=== PATIENT | female | born 1965 | race Caucasian/White ===

== ENCOUNTER 2024-02-20 09:27 | Observation (INO) ==
--- NOTE | 2024-01-20 12:45 | PAT Medication Instructions ---
Medication Instructions Date of Service January 20, 2024 Home Medications ascorbic acid (vitamin C) 500 mg tablet,extended release (Vitamin C ER) 500 mg PO DAILY celecoxib 200 mg capsule (Celebrex) 200 mg PO BID cholecalciferol (vitamin D3) 50 mcg (2,000 unit) tablet (Vitamin D3) 50 mcg PO DAILY multivitamin 1 tab PO QAM prasterone (dhea)-calcium carbonate 10 mg-47 mg calcium tablet (DHEA) 1 tab PO QAM progesterone micronized 100 mg capsule 100 mg PO QAM thyroid (pork) 60 mg tablet ([place] Thyroid) 60 mg PO QAM ASK your surgeon for instructions celecoxib 200 mg capsule (Celebrex) 200 mg PO BID ASK your prescriber and surgeon progesterone micronized 100 mg capsule 100 mg PO QAM STOP taking 2 weeks before surgery prasterone (dhea)-calcium carbonate 10 mg-47 mg calcium tablet (DHEA) 1 tab PO QAM DO NOT take the morning of surgery ascorbic acid (vitamin C) 500 mg tablet,extended release (Vitamin C ER) 500 mg PO DAILY cholecalciferol (vitamin D3) 50 mcg (2,000 unit) tablet (Vitamin D3) 50 mcg PO DAILY multivitamin 1 tab PO QAM Take morning of surgery With a small sip of water, OTHERWISE NOTHING TO EAT OR DRINK AFTER MIDNIGHT: thyroid (pork) 60 mg tablet ([place] Thyroid) 60 mg PO QAM Other Notes If you have any questions please call us at [phone] or [phone] or [phone] or [phone]
--- NOTE | 2024-01-27 09:10 | Anesthesiology Consultation ---
Date of Service January 27, 2024 Assessment & Plan (1) Encounter for pre-operative examination: - Infectious disease screening: Per assessment on 01/27/24: No known infectious disease contacts or current infectious disease symptoms. No noted recent Covid positive test result. - Outpatient joint assessment: Pt currently scheduled for inpatient pathway. If surgeon requests review for outpatient joint pathway, patient is an acceptable candidate for outpatient joint program from anesthesia standpoint pending surgeon's office assessment that patient is motivated, has good support and completes [facility] preop requirements. - Chlorhexidine allergy: Hx rash reaction. No chlorhexidine wipes provided at PAT visit d/t hx of reaction. Chart Review Chart Review: Acceptable Risk for Surgery and Patient seen in Pre Admission Testing Teaching & Discussion Pre-Anesthesia Teaching/Discussion Notes: Instructed NPO after midnight before surgery,except medications with 15 cc of water. Medication instructions provided according to the [facility] guidelines. History Surgery Operation Date: 02/20/24 08:00 Proposed Procedures p Left Total Hip Arthroplasty Anterior - Garrick Sellers, Height/Weight Height: 5 ft 5 in Weight: 87.8 kg Allergies Allergy/AdvReac Type Severity Reaction Status Date / Time chlorhexidine Allergy Intermediate Rash Verified 01/19/24 09:13 [From ChloraPrep Clear] isopropyl alcohol Allergy Intermediate Rash Verified 01/19/24 09:13 [From ChloraPrep Clear] Medications Home Medications Medication Instructions Recorded Confirmed Last Taken ascorbic acid (vitamin C) 500 mg 500 mg PO DAILY 01/19/24 01/19/24 Unknown tablet,extended release (Vitamin C ER) celecoxib 200 mg capsule (Celebrex) 200 mg PO BID 01/19/24 01/19/24 Unknown cholecalciferol (vitamin D3) 50 50 mcg PO DAILY 01/19/24 01/19/24 Unknown mcg (2,000 unit) tablet (Vitamin D3) multivitamin 1 tab PO QAM 01/19/24 01/19/24 Unknown prasterone (dhea)-calcium 1 tab PO QAM 01/19/24 01/19/24 Unknown carbonate 10 mg-47 mg calcium tablet (DHEA) progesterone micronized 100 mg 100 mg PO QAM 01/19/24 01/19/24 Unknown capsule thyroid (pork) 60 mg tablet 60 mg PO QAM 01/19/24 01/19/24 Unknown ([place] Thyroid) Past Medical History Medical History History of COVID-2021 Hypothyroidism Osteoarthritis Postmenopausal HRT (hormone replacement therapy) + "Pellet" insertion approximately every 4-5 months Exercise / Class Metabolic Activity II 4-5 Yardwork/Stairs/Walk up hill (one FS: No CP, no SOB) Past Family History Family History Sister Sakaa-Cvmsqgncx-Xeiyf (WPW) syndrome Past Surgical History Surgical History History of breast biopsy benign History of colonoscopy History of tooth extraction Hx of ectopic with surgery Past Anesthesia History No Hx of Anesthesia Complications and No Family Hx of Anesthesia Complications History of PONV No Hx of PONV and No Hx of Motion Sickness Social History Smoking Status: Never smoker Do You Dip or Chew Tobacco: No Hx Alcohol Use: Yes Alcohol type: wine alcohol intake frequency: 3 or more drinks per day (2-3 drink/day) Hx Substance Use: No substance use type: does not use Review of Systems Patient denies chest pain, shortness of breath, dyspnea on exertion, fever, chills, cough, wheezing, palpitations. Physical Exam Vital Signs BP 110/76 P 72 TEMP SP02 95%RA RESP 16 Physical Full cervical extension range of motion. Full TMJ range of motion. TMD 3 finger breaths Mallampati Score 3 Dentition: intact, several crowns (molars), bridge Lungs: clear throughout to auscultation Cardiac: regular rate and rhythm, no murmurs noted Spine: normal Carotid arteries: negative bruit Extremities: no LE edema Lab Results Anesthesia Preop Results Results Anesthesia Widget: WBC 7.36 K/ul (4.8-10.8) 01/27/24 Hgb 14.6 g/dl (12.0-16.0) 01/27/24 Hct 43.8 % (37.0-47.0) 01/27/24 Plt 288 K/uL (130-400) 01/27/24 Na 136 mmol/L (136-145) 01/27/24 K 4.5 mmol/L (3.5-5.1) 01/27/24 Cl 105 mmol/L (98-107) 04/16/24 CO2 24 mmol/L (21-32) 01/27/24 BUN 18 mg/dl (6-23) 01/27/24 Creat 0.83 mg/dl (0.6-1.2) 01/27/24 Glucose Level 99 mg/dl (70-99(Fasting)) 01/27/24 PT 10.3 Seconds (9.0-12.0) 01/27/24 PTT 25 Seconds (21-31) 01/27/24 INR 0.9 (0.9-1.1) 01/27/24 Blood Type A Positive 01/27/24 Antibody Screen NEGATIVE 01/27/24 Testing Electrocardiogram Date: 01/27/24 NSR at 60bpm. "Normal ECG" Chest X-Ray Date: 01/27/24 FINDINGS: The lungs are clear. Cardiac silhouette is normal in size. No pleural effusions. No pneumothorax. IMPRESSION: No acute process.
[~2024-02-20 09:27] MED LIST: BUPIVACAINE 0.5 % 5 MG/1 ML PF 10ML VIAL ONE
[2024-02-20] MEDS: LR 500ML BOLUS, THEN 15ML/HR IV SCH (09:59)
[2024-02-20] MEDS: FAMOTIDINE 20 MG TAB PO SCH (10:01)
[2024-02-20] MEDS: dexAMETHasone**PF** 10 MG/ML VIAL IV SCH (10:01)
[2024-02-20] MEDS: ACETAMINOPHEN 500 MG TAB PO SCH ×2 (10:01→21:29)
[2024-02-20] MEDS: GABAPENTIN 600 MG DOSE PO SCH (10:01)
[2024-02-20] MEDS ORDERED: PROPOFOL IV EMULSION 10 MG/ML 20 ML VIAL IV ONE ×2 (10:11→11:53)
[2024-02-20] MEDS ORDERED: fentaNYL citrate PF 100 MCG/2 ML VIAL ONE ×2 (10:11→11:50)
[2024-02-20] MEDS ORDERED: MIDAZOLAM HCL 1 MG/ML 2ML VIAL ONE (10:11)
[2024-02-20] MEDS ORDERED: LIDOCAINE 2% 2 ML VIAL/AMP(20MG/ML) INFIL ONE (10:11)
--- NOTE | 2024-02-20 10:12 | History & Physical Bridge Note ---
Date of Service February 20, 2024 History & Physical Bridge Note I have examined the patient, reviewed the History & Physical and in the interval since the performance of the History & Physical I have noted the following changes of clinical significance: no changes noted
[2024-02-20] MEDS: LR 60ML/HR IV SCH (10:18)
[2024-02-20] MEDS ORDERED: ePHEDrine sulfate 50 MG/ML AMP IV PRN (10:34)
[2024-02-20] MEDS ORDERED: ONDANSETRON INJ 2 MG/ML 2 ML VIAL IV PRN ×2 (10:34→14:38)
[2024-02-20] MEDS ORDERED: ATROPINE SULFATE 0.1 MG/ML 10ML SYR IV PRN (10:34)
[2024-02-20] MEDS: TRANEXAMIC ACID 1,000 MG **IV Pre-op IV SCH (11:08)
[2024-02-20] MEDS: ceFAZolin 2000MG 2,000 MG/15 ML SYR IV SCH ×2 (11:21→18:31)
[2024-02-20] MEDS ORDERED: ePHEDrine sulfate 50 MG/5 ML SYR ONE (12:12)
[2024-02-20] MEDS: ROPIV 0.5% 246mg, Ketorolac 30mg, EPINEPHrine 0.5mg in NSS INFIL SCH (12:21)
[2024-02-20] MEDS: ORTHO JOINT ANESTHETIC ONE (12:22)
[2024-02-20] MEDS: TRANEXAMIC ACID 1,000 MG **IV Intra-op IV SCH (12:42)
[2024-02-20] MEDS ORDERED: KETOROLAC 30 MG/ML VIAL ONE (12:54)
[2024-02-20] MEDS ORDERED: HYDROmorphone INJ 2 MG/ML SYR/VIAL ONE (12:57)
--- NOTE | 2024-02-20 13:13 | Fluoroscopy Report ---
FL hip LT 1V CLINICAL HISTORY: LEFT ANTERIOR TRISTEN COMPARISON STUDY: Left hip radiographs December 17, 2023. FLUOROSCOPY TIME: 21 seconds. Ka, r: 2.6380 mGy FLUOROSCOPIC IMAGES: 1 FINDINGS: Fluoroscopy was provided during anterior total left hip arthroplasty. Hardware is intact. T here is no periprosthetic fracture or unexpected radiopaque foreign body. IMPRESSION: Fluoroscopy provided during total left hip arthroplasty. ACT 112: Negative or not required by law. Electronically signed by: Suleiman Valente M.D. 02/20/2024 1:11 PM
--- NOTE | 2024-02-20 13:17 | Operative Report ---
PG Post Operative Report Pre & Post Diagnosis Operation Date: 02/20/24 11:00 Pre-Op Diagnosis: Left Hip Degnerative Joint Disease Post-Op Diagnosis: Left Hip Degnerative Joint Disease I identified the patient and participated in the time-out.: Yes Procedure Operation Date: 02/20/24 11:00 Actual Procedures p Left Anterior Total Hip Arthroplasty, Uncemented(Left) - Garrick Sellers DO Surgeon Garrick Sellers DO E Learning Designer Garrick Rahman PA-C Estimated Blood Loss 200 Findings Consistent with Post-Op Diagnosis Specimens Left femoral head Description of Procedure Implants used I used a ZimmerBiomet total hip arthroplasty system with a size 0 standard offset Avenir Complete stem, a 48 mm G7 cup with a 25mm screw, an E1 p olyethylene liner, a 32 mm ceramic head with a +3.5 neck. Teodora arrived at the hospital for the above procedure. She was seen in the preoperative holding area and the operative extremity was identified and signed. She was given a spinal anesthetic, a preoperative antibiotic, and TXA. She was then taken back to the operating room and laid on the table in the supine position. She was given basic sedation. The operative leg was secured to a Puristst leg positioner. The hip was then prepped and draped in sterile fashion. A timeout was done and the patient and the operative extremity was properly identified. An anterior approach was used. Dissection was taken down through the fascia and the tensor muscle belly was retracted laterally and the rectus was retracted medially. The circumflex vessels were identified and ligated. The capsule was then incised and tagged for later repair. The femoral neck was then cut and the femoral head was removed. The acetabulum was exposed. Time was spent doing a complete circumferential labral release. Sequential reaming of the acetabulum up to a size 47 reamer was done. Final reamings were done under fluoroscopy to ensure appropriate version. A Biomet 48 mm G7 cup was then impacted into place. A single 25 mm screw was placed. The E1 polyethylene liner was then snapped into place. Surrounding soft tissues were then injected with 100 cc of an orthopedic pain control cocktail. The proximal femur was then exposed. Sequential broaching up to a size 0 broach was done. Off that broach a size 32 head with a +3.5 neck was trialed. The hip was reduced and fluoroscopic images showed anatomic alignment of the implants in acceptable length. The broach was removed. The final size 0 standard offset Avenir Complete stem was then impacted into place. A ceramic 32 mm head with a +3.5 neck was then impacted onto the stem and the hip was reduced. Final fluoroscopic images showed anatomic alignment of the hip. The capsule was then closed with #1 Vicryl suture. A dilute betadyne lavage was then done for 3 minutes. The joint was then irrigated with normal saline solution. The fascia was closed with #1 PDS suture. Skin was closed with 2-0 Vicryl, braulio, and a Silverlon dressing. She was then transferred to a hospital bed and taken to the post anesthesia care unit in stable condition. She tolerated the procedure well. Garrick Rahman PA-C, was present for the entire procedure. He was critical for patient positioning, prepping, draping, retraction exposure, wound closure and application of sterile dressing. I attest to the content of the Intraoperative Record and any orders documented therein. Any exceptions are noted below.
[2024-02-20] MEDS: fentaNYL citrate PF 100 MCG/2 ML VIAL IV PRN (13:28)
--- NOTE | 2024-02-20 13:42 | XRay Report ---
AP PELVIS, CROSSTABLE LATERAL LEFT HIP History: Left total hip arthroplasty. Degenerative arthritis. Postop. FINDINGS: The patient is status post a left total hip arthroplasty. The hardware is intact. No fractu re or dislocation. Skin braulio and surgical drains are in place. IMPRESSION: Left total hip arthroplasty. No evidence for hardware complication. ACT 112: Negative or not required by law. Electronically signed by: Eduardo Manriquez M.D. 02/20/2024 1:40 PM
--- NOTE | 2024-02-20 13:54 | Anesthesiology Progress Note ---
Date of Service February 20, 2024 Anesthesia Post Procedure Vital Signs Vital Signs: Temp Pulse Pulse Resp BP Pulse Ox O2 Del Method 02/20/24 13:40 81 16 116/72 95 Nasal Cannula 02/20/24 13:30 70 16 107/65 95 Nasal Cannula 02/20/24 13:20 76 16 100/61 96 Nasal Cannula 02/20/24 13:10 93 H 17 101/67 97 Nasal Cannula 02/20/24 13:04 97.0 F L 80 16 99/59 L 97 Nasal Cannula 02/20/24 10:22 98.1 F 69 18 124/72 98 Room Air O2 Flow Rate 02/20/24 13:40 3 02/20/24 13:30 3 02/20/24 13:20 3 02/20/24 13:10 3 02/20/24 13:04 3 02/20/24 10:22 Transfer of Care Handoff Completed per policy Notes Mental Status: alert / awake / arousable and participated in evaluation Patient Amnestic to Procedure: Yes Nausea / Vomiting: adequately controlled Pain: adequately controlled Airway Patency, RR, SpO2: stable & adequate BP & HR: stable & adequate Hydration State: stable & adequate Neuraxial Anesthesia: was administered and sensory block is resolving Anesthetic Complications: no major complications apparent and Pt Satisfied with anesthetic care
[2024-02-20] MEDS ORDERED: MAGNESIUM HYDROXIDE SUSP 30 ML UDC PO PRN (14:38)
[2024-02-20] MEDS ORDERED: bisacodyL 10 MG SUPP PR PRN (14:38)
[2024-02-20] MEDS ORDERED: NALOXONE HCL 0.4 MG/1 ML VIAL/CARP IV PRN (14:38)
[2024-02-20] MEDS ORDERED: METOCLOPRAMIDE HCL INJ 5 MG/ML 2 ML VIAL IV PRN (14:38)
[2024-02-20] MEDS ORDERED: HYDROmorphone INJ 0.5 MG/0.5 ML SYR IV PRN (14:38)
[2024-02-20] MEDS: KETOROLAC 30 MG/ML VIAL IV SCH (15:30)
[2024-02-20] MEDS: SODIUM CHLORIDE 0.9% 1,000 ML IV SCH (15:34)
[2024-02-20] MEDS: oxyCODONE HCL IR 5 MG TAB (IMMEDIATE RELEASE) PO PRN (17:48)
[2024-02-20] MEDS: DOCUSATE SODIUM 100 MG CAP PO SCH (20:05)
[2024-02-20] MEDS: SENNA 8.6 MG TAB PO SCH (20:06)
[2024-02-20] MEDS: ASPIRIN 81 MG ECTAB PO SCH (20:06)
[2024-02-21] MEDS: MULTIVITAMIN TAB PO SCH (07:30)
[2024-02-21] MEDS: dexAMETHasone 4 MG TAB PO SCH (07:30)
--- NOTE | 2024-02-21 08:11 | Orthopedic Progress Note ---
Date of Service February 21, 2024 Assessment & Plan (1) Status post left hip replacement: Overall she is doing very well. She is not having much pain in the left hip. She will be seen by physical therapy today for ambulation and range of motion exercises. She is on aspirin for DVT prophylaxis. She can be discharged home later today. She will follow-up orthopedics in 2 weeks. Andres Araiza was seen and examined at bedside this morning. Overall she is doing very well. She is not having much pain in the left hip. She has been up and ambulating to the bathroom. She has no complaints.. Review of Systems All systems reviewed & are unremarkable except as noted in HPI & below. Physical Exam On physical examination left hip, the dressing is clean and dry. Her leg is out full extension. She has active dorsiflexion plantarflexion of her left ankle.. Results & Data Results & Data Laboratory Results . Diagnostic Findings Postoperative x-rays of the left hip show the prosthesis to be in anatomic alignment without any evidence of fracture complication, or loosening.. PG Care Time/CCT Total # of Minutes Spent Total Time Spent with Patient: Total time spent is greater than 50% in coordination of care (as documented) at patient's floor/unit and/or counseling patient: Coding Level of Care Code 11491 Post Operative Follow-Up Diagnoses Status post left hip replacement Z96.642
--- NOTE | 2024-02-21 08:12 | Discharge Summary ---
Date of Service February 21, 2024 Principal Diagnosis Same as "Discharge Diagnosis" noted below under Discharge Instructions. Discharge Exam On physical examination left hip, the dressing is clean and dry. Her leg is out full extension. She has active dorsiflexion plantarflexion of her left ankle.. Discharge Data Procedures Performed Operation Date: 02/20/24 11:00 Actual Procedures p Left Anterior Total Hip Arthroplasty, Uncemented(Left) - Garrick Sellers DO Ordered Studies 02/20/24 FL hip LT 1V Routine Hospital Course (1) Status post left hip replacement: On February 20, 2024 Teodora arrived at [facility] and underwent a left hip replacement without complication. She had a spinal anesthetic. Postoperatively she was started on aspirin for DVT prophylaxis and transferred to the general orthopedic floors. Her hospital course was uneventful. On postop day #1, her vital signs were stable and her pain was well-controlled. She was able to participate well with physical therapy doing ambulation and range of motion exercises. She was then discharged home. She will follow with orthopedics in 2 weeks. PG Care Time/CCT Total # of Minutes Spent Total Time Spent with Patient: Total time spent is greater than 50% in coordination of care (as documented) at patient's floor/unit and/or counseling patient: Discharge Plan Discharge Items Patient Disposition: Home - Self-Care Reason For Visit: Left Hip Degnerative Joint Disease Discharge Diagnosis: Left hip replacement Activity: As commented below Non-emergency contact: Surgeon Call non-emergency contact if: your wound has increased redness and your wound has increased drainage Follow-up/Referrals: PCP,NO [Primary Care Provider] - Diet: Regular Addtl Attending Provider Instructions: Activity and Therapy Recommendations: * If you are using [facility] then therapy will be provided at your home until they feel you have accomplished all of your goals. * If you are using [facility] then Physical Therapy will be provided until they feel you are ready to start Outpatient Physical Therapy. * If you are not using home therapy then Outpatient Physical Therapy should start about 3-5 days from your day of surgery. Therapy will last about 6-10 weeks * You were shown a series of exercises in the hospital. Do these exercises three times each day including the exercises you were shown in physical therapy. * Get up and walk several times each day.~ For the first four weeks, try not to stand or walk for more than one hour at a time. If you do stand or walk for more than one hour, you will not hurt anything, but your leg will likely swell.~~ * As you feel comfortable, you may change from the walker or crutches to a cane and~then to independent walking. Medications: * Narcotic You will likely be sent home from the hospital with a prescription for the narcotic pain medication that worked best throughout your stay. * Cefadroxil -take the antibiotic twice a day for 10 days to help with infection. * Aspirin Most patients will be required to take Aspirin 81mg twice a day for 6 weeks after surgery. This is obtained [id number] and a prescription is not necessary. * Other medications may be prescribed for specific circumstances. If you have any questions, please call the office at . * Resume previous home medications unless otherwise instructed TEDs/Elastic Stockings: The white elastic stockings help limit swelling and prevent blood clots from forming in your legs. The more you wear them, the more they work. Wear them for six weeks. Dressing Care: Leave the Silverlon dressing in place for 7 days. After 7 days you may remove the dressing. If the incision is not draining then you may leave the braulio open to air. If there is a little bit of drainage or if the braulio are getting stuck on your clothing then cover the incision with a dry dressing. The braulio will be removed at your 2 week follow-up appointment. Showering: You may shower with the Silverlon dressing in place. Do not let the shower spray hit the dressing directly. Pat the Silverlon dressing dry. If the dressing becomes wet underneath, then simply remove the dressing. Keep the incision dry until you are 7 days out from the day of surgery. After 7 days you may remove the Silverlon dressing and shower with the braulio exposed. Let soapy water run over the braulio and pat them dry. Do not scrub or soak the incision. Things To Watch For: * Drainage from the incision site that occurs more than one week after your surgery. * Increased redness at the incision site. * Fever above 102 degrees Fahrenheit. * Unusual chest pain or shortness of breath. * Call [facility] at with any of the above problems Follow-Up Visit: Follow-up with Dr. Sellers's PA (Garrick Rahman) 2-3 weeks after your day of surgery. He will remove your braulio and answer any questions. If you have any additional questions or concerns, Dr Sellers is usually in the office at the same time and will be available An appointment was probably scheduled when you signed-up for surgery in the office. If you have any questions call Office Instructions: More detailed instructions as well as Frequently Asked Questions were provided in a folder by our office when you signed-up for surgery. Please review these instructions when you get home. If you have any further questions or concerns, please feel free to call the office at [phone] Pending Studies at Discharge: No Stand-Alone Forms: My [facility] Medications and DC Order Prescriptions: New oxycodone 5 mg Tablet 5 mg PO Q4H PRN (Reason: pain) Qty: 30 0RF cefadroxil 500 mg capsule 500 mg PO BID 10 Days Qty: 20 0RF zolpidem [Ambien] 5 mg tablet 5 mg PO HS PRN (Reason: insomnia) Qty: 20 0RF aspirin 81 mg Tablet,Delayed Release (Dr/Ec) 81 mg PO BID 42 Days Qty: 84 0RF Continued multivitamin Tablet 1 tab PO QAM celecoxib [Celebrex] 200 mg Capsule 200 mg PO BID ascorbic acid (vitamin C) [Vitamin C] 500 mg Tablet Extended Release 500 mg PO DAILY progesterone micronized 100 mg Capsule 100 mg PO QAM Rx Instructions: off 7 days; repeat cycle cholecalciferol (vitamin D3) [Vitamin D3] 50 mcg (2,000 unit) Tablet 50 mcg PO DAILY thyroid (pork) [[place] Thyroid] 60 mg Tablet 60 mg PO QAM DHEA 10 mg-47 mg calcium Tablet 1 tab PO QAM Discharge Orders: Discharge Order (Routine); Ordered 02/21/24 Ordered By: Garrick Sellers Admission Data Admit Date/Time: 02/20/24 13:05 Attending Provider: Garrick Sellers Admit Provider: Garrick Sellers Primary Care Provider: [id number]
[2024-02-21] MEDS ORDERED: [UNRECOGNIZED DRUG - OTHER] PO SCH (09:00)
[2024-02-21] MEDS ORDERED: CALCIUM CARBONATE PO SCH (09:00)
[2024-02-21] MEDS ORDERED: PRASTERONE PO SCH (09:00)
== END 2024-02-21 10:44 | disposition home health service (06) ==
LOC: 3N 09:27 → ASU 09:27